=== PATIENT | female | born 1995 | race Caucasian/White ===

== ENCOUNTER 2024-12-05 12:55 | Emergency (ER) | payer OTHER ==
[~2024-12-05] VITALS: Ht 154.9 cm; Wt 112.2 kg
[2024-12-05] MEDS: KETOROLAC 30 MG/ML 1ML VIAL IM ONE (17:06)
[2024-12-05] MEDS: methocarbamoL 750 MG TAB PO ONE (17:06)
[2024-12-05] MEDS ORDERED: VENTAER INH (18:01)
[2024-12-05] MEDS ORDERED: METH-1165 PO (18:20)
[2024-12-05 18:40] VITALS: BP 134/83; TEMP 97.6; O2SAT 97
== END 2024-12-05 18:42 | disposition home or self-care (01) ==
LOC: M ED 12:55
DX: M54.50 Low back pain, unspecified (principal); Y04.8XXA Assault by other bodily force, initial encounter; F41.9 Anxiety disorder, unspecified; F60.3 Borderline personality disorder; F43.10 Post-traumatic stress disorder, unspecified; Y93.89 Activity, other specified; Y99.9 Unspecified external cause status; Z79.52 Long term (current) use of systemic steroids; Z79.899 Other long term (current) drug therapy
CPT/HCPCS: 72125; 72128; 72131; 96372; 99283; J1885

== ENCOUNTER 2024-12-10 15:42 | Emergency (ER) | payer OTHER, SELFPAY ==
[~2024-12-10] VITALS: Ht 154.9 cm; Wt 109.3 kg
[~2024-12-10 15:42] MED LIST: METH-1165 PO; VENTAER INH
[2024-12-10 15:53] VITALS: BP 142/106; TEMP 98.6; O2SAT 98
== END 2024-12-10 16:46 | disposition left against medical advice (07) ==
LOC: EDBD 15:42 → M ED 15:42
DX: Z53.21 Procedure and treatment not carried out due to patient leaving prior to being seen by health care provider (principal)

== ENCOUNTER 2024-12-31 18:56 | Emergency (ER) | payer SELFPAY ==
[~2024-12-31] VITALS: Ht 154.9 cm; Wt 116.3 kg
[2025-01-01 06:32] VITALS: BP 158/87; TEMP 98; O2SAT 97
== END 2025-01-01 08:44 | disposition left against medical advice (07) ==
LOC: M ED 18:56 → EDBD 18:56 → M ED 01-01 08:44
DX: Z53.21 Procedure and treatment not carried out due to patient leaving prior to being seen by health care provider (principal)

== ENCOUNTER 2025-02-08 21:26 | Emergency (ER) | payer SELFPAY ==
[~2025-02-08] VITALS: Ht 154.9 cm; Wt 118.0 kg
[2025-02-08 22:45] LABS: BASO # 0.1 10^3/uL (0.0-0.2); BASO % 0.5 % (0.0-1.0); EOS # 0.3 10^3/uL (0.0-0.5); EOS % 2.4 % (0.0-3.0); HEMATOCRIT 40.9 % (36.0-47.0); HEMOGLOBIN 13.6 g/dl (12.0-15.5); LYMPH # 2.4 10^3/uL (1.5-5.0); MEAN CORPUSCULAR HEMOGLOBIN 33.1 pg (27.0-33.0); MEAN CORPUSCULAR HGB CONC 33.3 g/dl (32.0-36.5); MEAN CORPUSCULAR VOLUME 99.5 fl (80.0-96.0); MONO # 0.9 10^3/uL (0.0-0.8); MONO % 7.8 % (2.0-8.0); NEUTROPHILS # 7.8 10^3/uL (1.5-8.5); NEUTROPHILS % 67.9 % (36.0-66.0); PLATELET COUNT, AUTOMATED 270 10^3/uL (150-450); RED BLOOD COUNT 4.11 10^6/uL (4.00-5.40); WHITE BLOOD COUNT 11.5 10^3/uL (4.0-10.0)
[2025-02-08 23:07] LABS: ALBUMIN 3.7 G/DL (3.2-5.2); ALKALINE PHOSPHATASE 79 U/L (35-104); ALT/SGPT 32 U/L (7.0-40); AST/SGOT 21 U/L (<34); BILIRUBIN,DIRECT < 0.1 MG/DL (<0.4); BILIRUBIN,TOTAL 0.2 MG/DL (0.3-1.2); BLOOD UREA NITROGEN 13 MG/DL (9-23); CALCIUM LEVEL 8.6 MG/DL (8.5-10.1); CARBON DIOXIDE LEVEL 23 MMOL/L (20-31); CHLORIDE LEVEL 107 MMOL/L (98-107); GLOMERULAR FILTRATION RATE > 90.0 (>60); GLUCOSE, FASTING 103 MG/DL (60-100); POTASSIUM SERUM 4.4 MMOL/L (3.5-5.1); SODIUM LEVEL 140 MMOL/L (136-145); TOTAL PROTEIN 6.7 G/DL (5.7-8.2)
[2025-02-09 00:03] LABS: HCG, SERUM QUALITATIVE NEGATIVE (NEGATIVE)
[2025-02-09 05:38] VITALS: BP 144/93; TEMP 97.5; O2SAT 98
== END 2025-02-09 06:39 | disposition home or self-care (01) ==
LOC: EDBD 21:26 → M ED 21:26
DX: R60.0 Localized edema (principal); K21.9 Gastro-esophageal reflux disease without esophagitis; M06.9 Rheumatoid arthritis, unspecified; Z88.5 Allergy status to narcotic agent; Z88.1 Allergy status to other antibiotic agents; Z91.048 Other nonmedicinal substance allergy status

== ENCOUNTER 2025-05-13 18:09 | Emergency (ER) | payer MEDICAID, OTHER, SELFPAY ==
[~2025-05-13] VITALS: Ht 165.1 cm; Wt 116.2 kg
[~2025-05-13 18:09] MED LIST changes: +NAPR-885 PO
[2025-05-13 18:10] VITALS: TEMP 98.5
[2025-05-13] MEDS: ALBUTEROL 90 MCG/ACT 8 GM HFA INHALER INH ONE (19:37)
[2025-05-13 20:07] LABS: BASO # 0.1 10^3/uL (0.0-0.2); BASO % 0.6 % (0.0-1.0); EOS # 0.1 10^3/uL (0.0-0.5); EOS % 0.6 % (0.0-3.0); LYMPH # 2.8 10^3/uL (1.5-5.0); LYMPH % 21.5 % (24.0-44.0); MONO # 1.0 10^3/uL (0.0-0.8); MONO % 8.0 % (2.0-8.0); NEUTROPHILS # 9.0 10^3/uL (1.5-8.5); NEUTROPHILS % 69.1 % (36.0-66.0); PLATELET COUNT, AUTOMATED 343 10^3/uL (150-450)
[2025-05-13 20:30] LABS: CK-MB VALUE MASS < 1.0 NG/ML (<3.6)
[2025-05-13 20:33] LABS: CALCIUM LEVEL 9.8 MG/DL (8.5-10.1); CARBON DIOXIDE LEVEL 27 MMOL/L (20-31); CHLORIDE LEVEL 105 MMOL/L (98-107); CPK CREATINE PHOSPHOKINASE 87 U/L (34-145); CREATININE FOR GFR 0.64 MG/DL (0.55-1.30); GLOMERULAR FILTRATION RATE > 90.0 (>60); POTASSIUM SERUM 4.0 MMOL/L (3.5-5.1); SODIUM LEVEL 142 MMOL/L (136-145)
[2025-05-13] MEDS ORDERED: ISOVUE-370 76% 100 ML VIAL As Ordered ONE (21:02)
[2025-05-13] MEDS: KETOROLAC 30 MG/ML 1 ML VIAL IV ONE (21:50)
[2025-05-13] MEDS ORDERED: ALBU8.5H INH (22:19)
[2025-05-13] MEDS: ACETAMINOPHEN 500 MG TAB PO ONE (22:38)
[2025-05-13] MEDS: PANTOPRAZOLE 40MG VIAL IV ONE (22:38)
[2025-05-13 23:35] VITALS: BP 134/73; O2SAT 99
== END 2025-05-13 23:42 | disposition home or self-care (01) ==
LOC: M ED 18:09
DX: R07.9 Chest pain, unspecified (principal); J45.909 Unspecified asthma, uncomplicated; Z88.1 Allergy status to other antibiotic agents; Z88.5 Allergy status to narcotic agent; Z91.09 Other allergy status, other than to drugs and biological substances; Z79.52 Long term (current) use of systemic steroids
CPT/HCPCS: 71046; 71275; 80048; 82550; 82553; 84484; 85025; 87486; 87581; 87633; 87798; 93005; 96374; 96375; 99284; J1885; J2470; Q9967

== ENCOUNTER 2025-06-20 18:57 | Emergency (ER) | payer OTHER ==
[~2025-06-20] VITALS: Ht 154.9 cm; Wt 116.2 kg
[~2025-06-20 18:57] MED LIST changes: +ALBU8.5H INH
[2025-06-20 20:24] LABS: BASO # 0.1 10^3/uL (0.0-0.2); BASO % 0.8 % (0.0-1.0); EOS # 0.1 10^3/uL (0.0-0.5); EOS % 0.8 % (0.0-3.0); LYMPH # 2.3 10^3/uL (1.5-5.0); LYMPH % 20.3 % (24.0-44.0); MONO # 0.9 10^3/uL (0.0-0.8); MONO % 7.9 % (2.0-8.0); NEUTROPHILS # 7.9 10^3/uL (1.5-8.5); NEUTROPHILS % 69.9 % (36.0-66.0); PLATELET COUNT, AUTOMATED 350 10^3/uL (150-450)
[2025-06-20 20:29] LABS: KETONE, URINE AUTO RFX 1+ mg/dL (NEGATIVE); LEUKOCYTE ESTERASE UR AUTO RFX 1+ (NEGATIVE); MUCUS, URINE RFX LARGE (NEGATIVE); NITRITE, URINE AUTO RFX NEGATIVE (NEGATIVE); RBC, URINE AUTO RFX 17 /HPF (0-3); SQUAM EPITHELIAL CELL UR AURFX 15 /HPF (0-6); WBC, URINE AUTO RFX 7 /HPF (0-3)
[2025-06-20 20:46] LABS: HCG, SERUM QUALITATIVE NEGATIVE (NEGATIVE)
[2025-06-20 20:49] LABS: CALCIUM LEVEL 8.9 MG/DL (8.5-10.1); CARBON DIOXIDE LEVEL 25 MMOL/L (20-31); CHLORIDE LEVEL 105 MMOL/L (98-107); CREATININE FOR GFR 0.77 MG/DL (0.55-1.30); GLOMERULAR FILTRATION RATE > 90.0 (>60); POTASSIUM SERUM 4.9 MMOL/L (3.5-5.1); SODIUM LEVEL 138 MMOL/L (136-145)
[2025-06-20] MEDS: KETOROLAC 30 MG/ML 1 ML VIAL IV ONE (21:13)
[2025-06-20 22:09] VITALS: BP 120/58; TEMP 97.6; O2SAT 98
[2025-06-20] MEDS ORDERED: PROT20TA11 PO (22:25)
== END 2025-06-20 22:38 | disposition home or self-care (01) ==
LOC: M ED 18:57
DX: R10.32 Left lower quadrant pain (principal); R91.1 Solitary pulmonary nodule; K76.0 Fatty (change of) liver, not elsewhere classified; F17.200 Nicotine dependence, unspecified, uncomplicated; Z88.5 Allergy status to narcotic agent; Z88.1 Allergy status to other antibiotic agents; Z91.048 Other nonmedicinal substance allergy status
CPT/HCPCS: 74176; 80048; 81001; 84703; 85025; 87086; 96374; 99284; J1885

== ENCOUNTER → 2025-07-11 | Outpatient (CLI) | payer OTHER, SELFPAY ==
[~2025-07-11] MED LIST changes: +PROT20TA11 PO
== END ==
LOC: M OUTALCOH 08:08
PROVIDERS: ATTEND Psychiatry & Neurology Psychiatry
DX: F12.20 Cannabis dependence, uncomplicated (principal); F11.20 Opioid dependence, uncomplicated

== ENCOUNTER 2025-07-29 10:53 | Emergency (ER) | payer SELFPAY ==
[~2025-07-29] VITALS: Ht 154.9 cm; Wt 116.7 kg
[2025-07-29 11:51] LABS: HCG, SERUM QUALITATIVE POSITIVE (NEGATIVE)
[2025-07-29 12:27] VITALS: BP 148/74; TEMP 97.9; O2SAT 99
== END 2025-07-29 12:35 | disposition home or self-care (01) ==
LOC: M ED 10:53
DX: Z32.01 Encounter for pregnancy test, result positive (principal); F41.9 Anxiety disorder, unspecified; Z3A.00 Weeks of gestation of pregnancy not specified